=== PATIENT | female | born 1995 | race Caucasian/White ===

== ENCOUNTER 2018-02-17 21:46 | Emergency (ER) | payer BC, OTHER ==
[~2018-02-17] VITALS: Ht 165.1 cm; Wt 63.5 kg
[2018-02-17] MEDS ORDERED: ACETAMINOPHEN 500 MG TAB (TYLENOL) PO ONE (22:15)
--- NOTE | 2018-02-17 22:17 | ED Lower Extremity ---
General Chief Complaint: Lower Extremity Stated Complaint: L FOOT POSS BREAK Nursing Triage Note: Pt arrival with parents, wheelchaired to ED 3. Pt rolled left foot awkwardly over a step when pt slipped and missed the step. Nursing Sepsis Screen: No Definite Risk Source: patient, family Exam Limitations: no limitations History of Present Illness Date Seen by Provider: Feb 17, 2018 Time Seen by Provider: 22:02 Initial Comments Patient resents to the ER by private conveyance with a chief complaint that earlier today she was walking up some steps and rolled her ankle and is now having some pain in her lateral metatarsals. She says she was able to walk on her foot earlier but not now. She does not take any medicines routinely and she has not had anything other than some Tylenol Motrin earlier today. She has been putting ice on it. She has no history of fracture or injury to her foot no medical or surgical history. She does not take any control medicine. Allergies and Home Medications Allergies Coded Allergies: No Known Drug Allergies (Unverified , 02/17/18) Patient Home Medication List Home Medication List Reviewed: Yes Constitutional: No chills, No diaphoresis EENTM: No ear discharge, No ear pain Respiratory: No cough, No short of breath Cardiovascular: No chest pain, No edema Gastrointestinal: No abdominal pain, No constipation, No diarrhea Genitourinary: No discharge, No dysuria : No Past Timkzpe-Ceblxr-Srpepe Hx Patient Social History Alcohol Use: Denies Use Recreational Drug Use: No Smoking Status: Never a Smoker Recent Foreign Travel: No Contact w/Someone Who Travel: No Recent Infectious Disease Expo: No Recent Hopitalizations: No Immunizations Up To Date Tetanus Booster (TDap): Less than 5yrs PED Vaccines UTD: Yes Seasonal Allergies Seasonal Allergies: No Past Medical History Surgeries: Yes Adenoidectomy, Tonsillectomy Respiratory: No Cardiac: No Neurological: No Last Menstrual Period: Feb 16, 2018 Genitourinary: No Gastrointestinal: No Musculoskeletal: No Endocrine: No HEENT: No Cancer: No Psychosocial: No Integumentary: No Blood Disorders: No Physical Exam Vital Signs Vital Signs - First Documented 02/17/18 21:51 Temp 97.2 Pulse 110 Resp 20 B/P (MAP) 115/71 (86) Pulse Ox 99 O2 Delivery Room Air Capillary Refill : Less Than 3 Seconds Height, Weight, BMI Height: 5'5.00" Weight: 140lbs. oz. 63.351487wz; BMI Method:Stated General Appearance: WD/WN, no apparent distress HEENT: PERRL/EOMI, pharynx normal Neck: non-tender, full range of motion Cardiovascular: normal peripheral pulses, regular rate, rhythm, no edema Respiratory: no respiratory distress, no accessory muscle use Ankles: bilateral ankle non-tender, bilateral ankle normal inspection, bilateral ankle normal range of motion, bilateral ankle no evidence of injury Feet: right foot non-tender, right foot normal inspection, right foot normal range of motion, right foot no evidence of injury; left foot bone tenderness ( metatarsals 3 through 5), left foot pain, left foot soft tissue tenderness, left foot swelling (scant left greater than right) Neurologic/Tendon: normal sensation, normal motor functions, normal tendon functions, responds to pain, no evidence tendon injury Neurologic/Psychiatric: no motor/sensory deficits, alert Skin: normal color, warm/dry Progress/Results/Core Measures Results/Orders My Orders Orders - [facility] BILL Foot, Left, 3 Views (02/17/18 22:10) Urine Bedside (02/17/18 22:10) Acetaminophen Tablet (Tylenol Tablet) (02/17/18 22:15) Medications Given in ED Current Medications Medications Dose Ordered Sig/Gisella Route Start Time Stop Time Status Last Admin Dose Admin Acetaminophen 1,000 mg ONCE ONCE PO 02/17/18 22:15 02/17/18 22:16 DC 02/17/18 22:16 1,000 MG Vital Signs/I&O 02/17/18 21:51 Temp 97.2 Pulse 110 Resp 20 B/P (MAP) 115/71 (86) Pulse Ox 99 O2 Delivery Room Air Blood Pressure Mean: 86 Progress Progress Note : Time: 22:20 Progress Note Patient is agreed upon Tylenol for her pain. We'll get some x-rays her foot ever an ice pack and go from there. Diagnostic Imaging Diagonstic Imaging: Xray Plain Films/CT/US/NM/MRI: other (left foot 2-3 views) Comments No acute fracture or dislocation of the left foot. Reviewed: Reviewed by Me Departure Impression Primary Impression: Sprain and strain of foot Disposition: 01 HOME, SELF-CARE Condition: Stable Departure-Patient Inst. Decision time for Depature: 22:49 Referrals: NO,LOCAL PHYSICIAN (PCP/Family) Primary Care Physician Patient Instructions: Sprain (DC) Add. Discharge Instructions: Apply ice for 20 minutes every 4 hours for the first 2-3 days. Keep it wrapped in an madelyn wrap. Elevate the foot above the level of your heart when possible to help with swelling and pain. Use Tylenol 1000 mg every 8 hours as well as ibuprofen 800 mg every 8 hours as needed for pain. If you're not seeing improvement of symptoms in the first 1-2 weeks then you should follow-up with a primary care provider for reevaluation and possible referral. All discharge instructions reviewed with patient and/or family. Voiced understanding. [facility] BILL Feb 17, 2018 22:17
--- OUTSIDE RECORDS SUMMARY | 2018-02-17 22:25 | XMS REPORT | Continuity of Care Document ---
Author Author [facility] Organization [facility] Address Unknown Phone Unavailable Allergies Active Description Code Type Severity Reaction Onset Reported/Identified Relationship to Patient Clinical Status Yes Augmentin Drug Allergy Unknown N/A 11/16/2016 Yes No Known Drug Allergies [id number] Drug Allergy Unknown N/A 02/17/2018 Medications Medication Packaging Start Date Stop Date Route Dosage Sig magnesium 30 mg tablet Tablet 10/20 30 mg take 1 ( one) Tablet by Oral route daily Probiotic 10 billion cell capsule Capsule 10/20/2016 10 billion cell 1 (one) by Oral route daily Fish Oil 300 mg capsule Capsule 300 mg take 1 (one) Capsule by Oral route daily Vitamin C 1,000 mg tablet Tablet 1,000 mg take 1 (one) Tablet by Oral route daily Vitamin B-6 100 mg tablet Tablet 100 mg take 1 (one) Tablet by Oral route daily Midol 500 mg-25 mg tablet Blister 10/20/2016 500-25 mg take 1 (one) Tablet by Oral route daily as needed Vitamin D3 1,000 unit capsule Capsule 10/20/2016 1,000 unit 1 (one) by Oral route daily ibuprofen 200 mg tablet Blister 200 mg take 1 (one) Tablet by Oral route daily as needed Tylenol 325 mg tablet Packet 2016 325 mg take 1 ( one) Tablet by Oral route daily as needed Hycet 7.5 mg-325 mg/15 mL oral solution Milliliter 02/05/2017 7.5-325 mg /15 mL 15 cc by Oral route every 4 hours (ALTERNATE WITH IBUPROFEN EVERY 2 HOURS) Zofran ODT 4 mg disintegrating tablet Tablet 02/05/2017 02/05/2017 4 mg take 1 or 2 (one or two) Tablet by Oral route every 6 hours as needed NAUSEA ibuprofen 100 mg/5 mL oral suspension Milliliter 02/05/2017 02/05/2017 100 mg/5 mL 20 cc by Oral route every 4 hours (ALTERNATE WITH HYCET EVERY 2 HOURS) Problems Date Dx Coded Attending Type Code Diagnosis Diagnosed By 10/29/2016 GRACIA ALFONSO MD J31.2 Chronic pharyngitis GRACIA ALFONSO MD 10/29/2016 GRACIA ALFONSO MD J36 Peritonsillar abscess GRACIA ALFONSO MD 01/09/2017 Melissa Jesus Final R06.02 Shortness of breath 02/25/2017 GRACIA ALFONSO MD J35.01 Chronic tonsillitis GRACIA ALFONSO MD 02/25/2017 GRACIA ALFONSO MD J35.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 GRACIA ALFONSO MD 08/07/2017 W H52.223 Regular astigmatism, bilateral 08/07/2017 W H52.223 Regular astigmatism, bilateral 08/12/2017 W H52.223 Regular astigmatism, bilateral Procedures Code Description [place] [address] Office or other outpatient visit for the evaluation and management of an established patient, which GRACIA ALFONSO MD 10/29/2016 20191 Office or other outpatient visit for the evaluation and management of an established patient, which GRACIA ALFONSO MD 12/02/2016 17979 Bronchodilation [place] [address], pre- and post-bronchodilator administration.. 01/09/2017 82767 TONSILLECTOMY, PRIMARY/ SECONDARY; < AGE 12 GRACIA ALFONSO MD 2016 04507 TONSILLECTOMY, PRIMARY/ SECONDARY; < AGE 12 GRACIA ALFONSO MD 2016 30399 EYE EXAM, NEW PATIENT 08/07/2017 Results There is no data. Encounters ACCT No. Visit Date/Time Discharge Status Pt. Type Provider Facility Loc./Unit Complaint [id number] 11/08/2012 00:40:00 11/08/2012 02:27:[id number] 02/25/2017 16:51:11 02/25/2017 23:59:59 CLS Outpatient GRACIA ALFONSO MD [id number] 08/07/2017 15:45:00 Document Registration [id number] 01/09/2017 14:43:00 01/09/2017 23:59:00 DIS Outpatient Melissa Jesus [facility] Mur Pulm LUIGI/DANILO/YAHAIRA [id number] 02/17/2018 21:49:00 ACT Emergency LANDY PADGETT, TRINIDAD Echevarria [facility] ER L FOOT POSS BREAK
--- OUTSIDE RECORDS SUMMARY | 2018-02-17 22:25 | XMS REPORT | Referral Summary ---
Author Author [facility] Organization [facility] Address Unknown Phone Unavailable Care Team Providers Care Manager Career Name Role Phone Melissa Jesus PCP Encounter VC Date(s): 01/09/17 - 01/09/17 [facility] [address] [place] [id number] Discharge Diagnosis: SOB (shortness of breath) Discharge Disposition: 01-Home or Self Care Attending Physician: Melissa Jesus MD Admitting Physician: Melissa Jesus MD Referring Physician: Melissa Jesus MD Vital Signs No data available for this section Problem List No data available for this section Allergies, Adverse Reactions, Alerts No data available for this section Medications No data available for this section Results No data available for this section Immunizations No data available for this section Procedures No data available for this section Social History No data available for this section Assessment and Plan No data available for this section
[2018-02-17 23:06] VITALS: BP 115/71
--- NOTE | 2018-02-18 07:11 | Diagnostic Imaging Report ---
INDICATION: Patient rolled left foot awkwardly. Pain EXAMINATION: Left foot 02/17/2018 Three views of the foot FINDINGS: There is no evidence for an acute fracture or dislocation. The joint spaces are well maintained. There is no significant soft tissue swelling. IMPRESSION: No acute process. Dictated by: Dictated on workstation # [id number]
== END 2018-02-17 23:06 | disposition home or self-care (01) ==
LOC: ER 21:49
DX: S93.402A Sprain of unspecified ligament of left ankle, initial encounter (principal); Z90.89 Acquired absence of other organs; X50.0XXA Overexertion from strenuous movement or load, initial encounter
CPT/HCPCS: 73630; 84703